=== PATIENT | male | born 1945 | race Caucasian/White ===

== ENCOUNTER 2024-03-12 17:39 | Inpatient (IN) | payer MEDICARE, OTHER ==
[~2024-03-12] VITALS: Ht 175.3 cm; Wt 81.0 kg
[2024-03-12 18:17] LABS: BASOPHILS # (AUTO) 0.1 X10'3 (0-0.2); BASOPHILS % (AUTO) 0.6 % (0-1); EOSINOPHILS # (AUTO) 0.3 X10'3 (0-0.9); EOSINOPHILS % (AUTO) 2.7 % (0-6); HEMATOCRIT 46.3 % (42.0-52.0); HEMOGLOBIN 15.9 g/dl (14.0-17.9); LYMPHOCYTES # (AUTO) 1.5 X10'3 (1.1-4.8); LYMPHOCYTES % (AUTO) 12.8 % (21-51); MEAN CORPUSCULAR HEMOGLOBIN 32.4 PG (27.0-31.0); MEAN CORPUSCULAR HGB CONC 34.2 g/dL (33.0-36.5); MEAN CORPUSCULAR VOLUME 94.6 FL (78-98); MEAN PLATELET VOLUME 7.5 FL (7.4-10.4); MONOCYTES # (AUTO) 0.8 X10'3 (0-0.9); NEUTROPHILS # (AUTO) 9.1 X10'3 (1.8-7.7); NEUTROPHILS % (AUTO) 76.9 % (42-75); PLATELET COUNT 173 X10'3 (140-440); RED CELL DISTRIBUTION WIDTH 12.6 % (11.5-14.5); WHITE BLOOD COUNT 11.8 X10'3 (4.5-11.0)
[2024-03-12 18:30] LABS: ALANINE AMINOTRANSFERASE 36 U/L (12-78); ALBUMIN 3.9 G/DL (3.4-5.0); ALBUMIN/GLOBULIN RATIO 1.2 (1.1-1.5); ALKALINE PHOSPHATASE 49 IU/L (46-116); AMYLASE 45 U/L (25-115); ANION GAP 7 (8-16); ASPARTATE AMINO TRANSFERASE 21 U/L (10-37); BILIRUBIN,TOTAL 1.4 MG/DL (0.1-1.0); BLOOD UREA NITROGEN 11 MG/DL (7-18); BUN/CREATININE RATIO 10.2 (10.0-20.0); CALCIUM 8.2 MG/DL (8.5-10.1); CHLORIDE 104 MMOL/L (99-107); CREATININE 1.08 MG/DL (0.60-1.10); GLUCOSE 145 MG/DL (70-104); LIPASE 36 U/L (16-77); SODIUM 138 MMOL/L (135-145); TOTAL CARBON DIOXIDE 26.7 MMOL/L (24-32); TOTAL PROTEIN 7.1 G/DL (6.4-8.2); eCRCL 55 ML/MIN; eGFR 66 ML/MIN
[2024-03-12 20:05] LABS: BILIRUBIN,URINE NEGATIVE (Neg); CLARITY,URINE CLEAR (Clear); COLOR,URINE YELLOW (Yellow); GLUCOSE, URINE NEGATIVE (Neg); KETONES,URINE NEGATIVE (Neg); LEUKOCYTE ESTERASE ,URINE NEGATIVE (Neg); NITRITES, URINE NEGATIVE (Neg); OCCULT BLOOD,URINE NEGATIVE (Neg); PH,URINE 6.5 (4.8-8.0); PROTEIN,URINE NEGATIVE (Neg); UROBILINOGEN,URINE 0.2 E.U/dL (0.2-1.0)
[2024-03-12 20:10] LABS: UA COLLECTION TYPE URINAL
[2024-03-12] MEDS: normal saline 1000ml 1,000 ML IV ONE (20:30)
[2024-03-12] MEDS ORDERED: pantoprazole 40mg IV 80 MG in normal saline 100ml IV soln 100 ML IV ONE (20:35)
[2024-03-12 20:51] LABS: APTT 26 SECONDS (22-32); INR 1.1 INR
[2024-03-12 20:52] LABS: MAGNESIUM 1.9 MG/DL (1.5-2.4); PRO BRAIN NATRIURETIC PEPTIDE 109 PG/ML (0-450)
[2024-03-12 20:52] LABS: ABSOLUTE RETICS # 68800 /CUMM (23000-93000); RETICULOCYTE % (AUTO) 1.4 % (0.5-1.5)
[2024-03-12 20:53] LABS: ETHANOL < 10 MG/DL (<10)
[2024-03-12] MEDS: pantoprazole 40 MG vial IV ONE (20:59)
[2024-03-12] MEDS: aspirin 81mg tab.chew PO ONE (21:50)
[2024-03-12] MEDS ORDERED: potassium Cl 20 mEq SR tablet PO PRN ×2 (22:55)
[2024-03-12] MEDS ORDERED: magnesium hydroxide 30ml (MOM) UD suspension PO PRN (22:55)
[2024-03-12] MEDS ORDERED: magnesium sulf-water 4G/100mL 100 ML IV PRN (22:55)
[2024-03-12] MEDS ORDERED: acetaminophen 325mg tablet PO PRN (22:55)
[2024-03-12] MEDS ORDERED: magnesium Cl slow-release 64mg tablet PO PRN (22:55)
[2024-03-12] MEDS ORDERED: ondansetron/PF 4mg/2ml inj IV PRN (22:55)
[2024-03-12] MEDS ORDERED: morphine 2 MG/ML inj. syringe IV PRN (22:55)
[2024-03-12] MEDS ORDERED: mag hydrox/Alum hydrox/simeth 30ml oral suspension PO PRN (22:55)
[2024-03-12] MEDS ORDERED: magnesium sulf-water 2g/50mL 50 ML IV PRN (22:55)
[2024-03-12] MEDS: HEPARIN DRIP-CARDIAC**PHARMACIST-TO-DOSE IV ONE (22:55)
[2024-03-12] MEDS ORDERED: potassium Cl 40MEQ/1/2NS 520ml 520 ML IV PRN (22:55)
[2024-03-12 23:45] LABS: D-DIMER 0.28 MG/L FEU (0-0.50)
[2024-03-12] MEDS: heparin 10,000 units/1 ML INJ IV ONE (23:47)
[2024-03-12] MEDS: heparin 25,000 UNIT/250ml bag 250 ML IV PRN (23:51)
[2024-03-12] MEDS: normal saline 1000ml 1,000 ML IV SCH (23:55)
[2024-03-12] MEDS: MESSAGE TO NURSING IV ONE (23:56)
[2024-03-13] VITALS (10 sets, daily range): BP systolic 104–136; BP diastolic 56–78; PULSE 57–68; RESP 14–18; TEMP 97.3–98.1; O2SAT 95–100
[2024-03-13] MEDS ORDERED: UBID100C16 PO (00:19)
[2024-03-13] MEDS ORDERED: BUDE10.2 INH (00:19)
[2024-03-13] MEDS ORDERED: BUDE0.5A11 IH (00:19)
[2024-03-13] MEDS ORDERED: ASPI-1265 PO (00:19)
[2024-03-13] MEDS ORDERED: LEVO112T52 PO (00:19)
[2024-03-13] MEDS ORDERED: ATOR20TA66 PO (00:19)
[2024-03-13] MEDS ORDERED: TRIA10.8 BOTHNARES (00:19)
[2024-03-13] MEDS ORDERED: CALC200T PO (00:19)
[2024-03-13] MEDS ORDERED: BISO5TAB PO (00:19)
[2024-03-13] MEDS ORDERED: PANT-47 PO (00:19)
[2024-03-13] MEDS ORDERED: ALEN70TA14 PO (00:19)
[2024-03-13] MEDS ORDERED: PERFLUTREN PROTEIN-A MICROSPHR (Optison) 0.22 MG/ML 3ML VIAL IV PRN (02:15)
[2024-03-13 03:06] LABS: OCCULT BLOOD STOOL NEGATIVE (Neg)
[2024-03-13] MEDS: pantoprazole 40 MG vial IV SCH (04:52)
[2024-03-13 06:41] LABS: BASOPHILS # (AUTO) 0.1 X10'3 (0-0.2); BASOPHILS % (AUTO) 0.8 % (0-1); EOSINOPHILS # (AUTO) 0.6 X10'3 (0-0.9); EOSINOPHILS % (AUTO) 7.1 % (0-6); HEMATOCRIT 42.5 % (42.0-52.0); HEMOGLOBIN 14.6 g/dl (14.0-17.9); LYMPHOCYTES # (AUTO) 2.3 X10'3 (1.1-4.8); LYMPHOCYTES % (AUTO) 29.5 % (21-51); MEAN CORPUSCULAR HEMOGLOBIN 32.2 PG (27.0-31.0); MEAN CORPUSCULAR HGB CONC 34.4 g/dL (33.0-36.5); MEAN CORPUSCULAR VOLUME 93.8 FL (78-98); MEAN PLATELET VOLUME 7.7 FL (7.4-10.4); MONOCYTES # (AUTO) 0.8 X10'3 (0-0.9); MONOCYTES % (AUTO) 9.7 % (2-12); NEUTROPHILS # (AUTO) 4.1 X10'3 (1.8-7.7); NEUTROPHILS % (AUTO) 52.9 % (42-75); PLATELET COUNT 163 X10'3 (140-440); RED BLOOD COUNT 4.53 X10'6 (4.70-6.10); RED CELL DISTRIBUTION WIDTH 12.7 % (11.5-14.5); WHITE BLOOD COUNT 7.8 X10'3 (4.5-11.0)
[2024-03-13 07:11] LABS: ALANINE AMINOTRANSFERASE 30 U/L (12-78); ALBUMIN/GLOBULIN RATIO 1.1 (1.1-1.5); ALKALINE PHOSPHATASE 44 IU/L (46-116); ANION GAP 7 (8-16); ASPARTATE AMINO TRANSFERASE 25 U/L (10-37); BILIRUBIN,TOTAL 1.4 MG/DL (0.1-1.0); BLOOD UREA NITROGEN 9 MG/DL (7-18); BUN/CREATININE RATIO 10.1 (10.0-20.0); CALCIUM 8.1 MG/DL (8.5-10.1); CHLORIDE 109 MMOL/L (99-107); CREATININE 0.89 MG/DL (0.60-1.10); GLUCOSE 116 MG/DL (70-104); MAGNESIUM 2.1 MG/DL (1.5-2.4); SODIUM 142 MMOL/L (135-145); TOTAL PROTEIN 5.8 G/DL (6.4-8.2); eCRCL 67 ML/MIN; eGFR 82 ML/MIN
[2024-03-13] MEDS: heparin 10,000 units/1 ML INJ IV PRN (07:42)
[2024-03-13] MEDS: K and/or MAG REPLACEMENT MC SCH (08:00)
[2024-03-13] MEDS: docusate sod 100mg capsule PO SCH (08:00)
[2024-03-13] MEDS: MESSAGE TO NURSING IV ONE ×2 (08:07→14:27)
[2024-03-13] MEDS: FLU VACC TS2024-25(6MOS UP)/PF 45 MCG/0.5 ML SYRINGE IMVAC ONE (08:08)
[2024-03-13] MEDS: metoprolol tartrate 12.5mg (1/2 tablet) PO SCH (11:05)
[2024-03-13] MEDS: atorvastatin 20mg tablet PO SCH (13:03)
[2024-03-13] MEDS: levoTHYROXINE 112mcg tablet PO SCH (13:04)
[2024-03-13 13:36] LABS: THYROID STIMULATING HORMONE 2.75 ulU/ml (0.34-4.50)
[2024-03-13] MEDS ORDERED: LIDOcaine 1% (10mg/ml) 2ml vial ONE (14:16)
[2024-03-13] MEDS ORDERED: heparin 1,000unit/ml 10ml vial 10 ML ONE (14:17)
[2024-03-13] MEDS ORDERED: iohexol 350MG/ML 100ml bottle IV ONE (14:17)
[2024-03-13] MEDS ORDERED: verapamil 2.5 mg/ml inj IV ONE (14:17)
[2024-03-13] MEDS ORDERED: fentaNYL/PF 50MCG/1 ML 2ML syringe ONE (14:17)
[2024-03-13] MEDS ORDERED: midazolam 1 mg/ML 2ml injection ONE (14:17)
[2024-03-13] MEDS ORDERED: nitroGLYCERIN 500mcg/5mL D5W 5 ML IV ONE (14:19)
[2024-03-13] MEDS: Budesonide/Formoterol Fumarate (Symbicort 160-4.5 Mcg Inhaler IH SCH (20:00)
[2024-03-14] VITALS (12 sets, daily range): BP systolic 116–140; BP diastolic 62–73; PULSE 60–91; RESP 15–26; TEMP 97.2–98.7; O2SAT 74–98
[2024-03-14 06:45] LABS: BASOPHILS # (AUTO) 0.1 X10'3 (0-0.2); BASOPHILS % (AUTO) 0.9 % (0-1); EOSINOPHILS # (AUTO) 0.6 X10'3 (0-0.9); EOSINOPHILS % (AUTO) 9.2 % (0-6); HEMATOCRIT 46.5 % (42.0-52.0); HEMOGLOBIN 15.9 g/dl (14.0-17.9); LYMPHOCYTES # (AUTO) 1.8 X10'3 (1.1-4.8); LYMPHOCYTES % (AUTO) 29.6 % (21-51); MEAN CORPUSCULAR HEMOGLOBIN 32.5 PG (27.0-31.0); MEAN CORPUSCULAR HGB CONC 34.2 g/dL (33.0-36.5); MEAN PLATELET VOLUME 8.7 FL (7.4-10.4); MONOCYTES # (AUTO) 0.6 X10'3 (0-0.9); MONOCYTES % (AUTO) 9.7 % (2-12); NEUTROPHILS # (AUTO) 3.1 X10'3 (1.8-7.7); NEUTROPHILS % (AUTO) 50.6 % (42-75); PLATELET COUNT 127 X10'3 (140-440); RED BLOOD COUNT 4.89 X10'6 (4.70-6.10); RED CELL DISTRIBUTION WIDTH 12.9 % (11.5-14.5); WHITE BLOOD COUNT 6.2 X10'3 (4.5-11.0)
[2024-03-14 06:54] LABS: ALANINE AMINOTRANSFERASE 32 U/L (12-78); ALBUMIN 3.2 G/DL (3.4-5.0); ALKALINE PHOSPHATASE 50 IU/L (46-116); ANION GAP 7 (8-16); ASPARTATE AMINO TRANSFERASE 30 U/L (10-37); BILIRUBIN,TOTAL 1.1 MG/DL (0.1-1.0); BLOOD UREA NITROGEN 8 MG/DL (7-18); BUN/CREATININE RATIO 9.6 (10.0-20.0); CALCIUM 8.4 MG/DL (8.5-10.1); CHLORIDE 110 MMOL/L (99-107); CREATININE 0.83 MG/DL (0.60-1.10); GLUCOSE 119 MG/DL (70-104); MAGNESIUM 2.2 MG/DL (1.5-2.4); SODIUM 142 MMOL/L (135-145); TOTAL CARBON DIOXIDE 24.9 MMOL/L (24-32); TOTAL PROTEIN 6.3 G/DL (6.4-8.2); eCRCL 72 ML/MIN; eGFR 89 ML/MIN
[2024-03-14] MEDS: aspirin 81mg tab.chew PO SCH (07:56)
[2024-03-14] MEDS: MESSAGE TO NURSING IV ONE ×3 (07:57→19:54)
[2024-03-14] MEDS ORDERED: CALCIUM CITRATE PO SCH (08:00)
[2024-03-14] MEDS ORDERED: non-formulary drug (Ubidecarenone (Coq-10) 200 MG) PO SCH (08:00)
[2024-03-14] MEDS: metoprolol succinate 25mg (24-HOUR) SR. Tablet PO SCH (08:00)
[2024-03-14] MEDS: ipratropium/albuterol 3ml nebule NEB PRN (08:42)
[2024-03-14] MEDS: budesonide 0.5mg/2ml UD nebule IH SCH (08:42)
[2024-03-14] MEDS ORDERED: cefazolin 2gm/D5W 100mL 50 ML IV ONE (12:10)
[2024-03-14] MEDS ORDERED: VANCOMYCIN 1GM 200ML H20 (PEG) 200 ML IV ONE (12:10)
[2024-03-14] MEDS ORDERED: dextrose 50%-water 50ml dispensing syringe IV PRN (12:10)
[2024-03-14] MEDS ORDERED: insulin glargine (Lantus) pen - multi-dose SQ PRN (12:10)
[2024-03-14] MEDS: MESSAGE TO NURSING PO ONE ×4 (12:10)
[2024-03-14] MEDS: MESSAGE TO PHARMACY IJ ONE (12:15)
[2024-03-14 13:16] LABS: APTT 59 SECONDS (22-32); PROTHROMBIN TIME 10.9 SECONDS (9.0-12.0)
[2024-03-14 13:35] LABS: ABG BASE EXCESS -1.1 mmol/L (-2.0-3.0); ABG HCO3 21.2 mmol/L (21.0-28.0); ABG OXYGEN SATURATION 94.7 % (94.0-98.0); ABG PCO2 (T) 28.8 mmHg (35.0-48.0); ABG PH (T) 7.481 (7.350-7.450); ABG PO2 (T) 61.2 mmHg (83.0-108.0); ALLEN'S TEST POSITIVE; FCOHb 0.9 % (0.5-1.5); FHHb 5.2 % (0.0-5.0); FLOW 0 L/min; FMetHb 0.3 % (0.0-1.5); FO2Hb 93.6 % (94.0-98.0); MODE RA; PATIENT TEMPERATURE 36.2; TOTAL HEMOGLOBIN 16.5 G/dl (13.5-17.5)
[2024-03-15] VITALS (10 sets, daily range): BP systolic 116–146; BP diastolic 63–81; PULSE 66–91; RESP 14–20; TEMP 97–98.6; O2SAT 94–98
[2024-03-15] MEDS: MESSAGE TO NURSING IV ONE ×4 (02:27→23:20)
[2024-03-15] MEDS: morphine 2 MG/ML inj. syringe IV PRN (04:14)
[2024-03-15] MEDS ORDERED: nitroGLYCERIN 0.4mg SUBLingual tab SL PRN (04:35)
[2024-03-15 08:32] LABS: BASOPHILS % (AUTO) 0.5 % (0-1); EOSINOPHILS # (AUTO) 0.3 X10'3 (0-0.9); EOSINOPHILS % (AUTO) 3.3 % (0-6); HEMATOCRIT 46.1 % (42.0-52.0); HEMOGLOBIN 16.1 g/dl (14.0-17.9); LYMPHOCYTES # (AUTO) 1.1 X10'3 (1.1-4.8); LYMPHOCYTES % (AUTO) 13.8 % (21-51); MEAN CORPUSCULAR HEMOGLOBIN 32.9 PG (27.0-31.0); MEAN CORPUSCULAR HGB CONC 34.9 g/dL (33.0-36.5); MEAN CORPUSCULAR VOLUME 94.3 FL (78-98); MEAN PLATELET VOLUME 8.3 FL (7.4-10.4); MONOCYTES # (AUTO) 0.7 X10'3 (0-0.9); NEUTROPHILS # (AUTO) 5.9 X10'3 (1.8-7.7); NEUTROPHILS % (AUTO) 73.4 % (42-75); PLATELET COUNT 160 X10'3 (140-440); RED BLOOD COUNT 4.89 X10'6 (4.70-6.10); RED CELL DISTRIBUTION WIDTH 12.7 % (11.5-14.5); WHITE BLOOD COUNT 8.1 X10'3 (4.5-11.0)
[2024-03-15] MEDS: nitroGLYCERIN 0.2mg/hour patch TD SCH (08:46)
[2024-03-15 08:48] LABS: ALANINE AMINOTRANSFERASE 30 U/L (12-78); ALBUMIN 3.4 G/DL (3.4-5.0); ALKALINE PHOSPHATASE 53 IU/L (46-116); ANION GAP 6 (8-16); ASPARTATE AMINO TRANSFERASE 22 U/L (10-37); BILIRUBIN,TOTAL 1.4 MG/DL (0.1-1.0); BLOOD UREA NITROGEN 9 MG/DL (7-18); BUN/CREATININE RATIO 9.1 (10.0-20.0); CALCIUM 8.5 MG/DL (8.5-10.1); CHLORIDE 107 MMOL/L (99-107); CREATININE 0.99 MG/DL (0.60-1.10); GLUCOSE 126 MG/DL (70-104); POTASSIUM 3.7 MMOL/L (3.5-5.1); SODIUM 140 MMOL/L (135-145); TOTAL CARBON DIOXIDE 27.2 MMOL/L (24-32); TOTAL PROTEIN 6.7 G/DL (6.4-8.2); eCRCL 61 ML/MIN; eGFR 73 ML/MIN
[2024-03-15] MEDS: MESSAGE TO NURSING PO ONE (10:00)
[2024-03-15] MEDS ORDERED: TIOT4MIS2 PO (10:20)
[2024-03-15] MEDS: ringers solution, lacted 1,000 ML IV ONE (15:10)
[2024-03-15] MEDS: Insulin Reg/NS 100units/100mL 100 ML IV SCH (21:30)
[2024-03-16] VITALS (19 sets, daily range): BP systolic 94–142; BP diastolic 48–69; PULSE 68–93; RESP 12–20; TEMP 97.4; O2SAT 95–100
[2024-03-16 03:01] LABS: BASOPHILS % (AUTO) 0.6 % (0-1); EOSINOPHILS # (AUTO) 0.5 X10'3 (0-0.9); EOSINOPHILS % (AUTO) 5.7 % (0-6); HEMATOCRIT 45.5 % (42.0-52.0); LYMPHOCYTES # (AUTO) 1.7 X10'3 (1.1-4.8); LYMPHOCYTES % (AUTO) 20.6 % (21-51); MEAN CORPUSCULAR HEMOGLOBIN 32.7 PG (27.0-31.0); MEAN CORPUSCULAR HGB CONC 35.2 g/dL (33.0-36.5); MEAN CORPUSCULAR VOLUME 92.9 FL (78-98); MEAN PLATELET VOLUME 8.1 FL (7.4-10.4); MONOCYTES % (AUTO) 11.4 % (2-12); NEUTROPHILS # (AUTO) 5.2 X10'3 (1.8-7.7); NEUTROPHILS % (AUTO) 61.7 % (42-75); PLATELET COUNT 151 X10'3 (140-440); RED BLOOD COUNT 4.89 X10'6 (4.70-6.10); RED CELL DISTRIBUTION WIDTH 12.9 % (11.5-14.5); WHITE BLOOD COUNT 8.4 X10'3 (4.5-11.0)
[2024-03-16 03:07] LABS: ALANINE AMINOTRANSFERASE 34 U/L (12-78); ALBUMIN 3.4 G/DL (3.4-5.0); ALKALINE PHOSPHATASE 52 IU/L (46-116); ANION GAP 9 (8-16); ASPARTATE AMINO TRANSFERASE 37 U/L (10-37); BILIRUBIN,TOTAL 1.7 MG/DL (0.1-1.0); BLOOD UREA NITROGEN 9 MG/DL (7-18); BUN/CREATININE RATIO 7.8 (10.0-20.0); CALCIUM 8.5 MG/DL (8.5-10.1); CHLORIDE 107 MMOL/L (99-107); CREATININE 1.15 MG/DL (0.60-1.10); GLUCOSE 135 MG/DL (70-104); MAGNESIUM 1.8 MG/DL (1.5-2.4); POTASSIUM 3.8 MMOL/L (3.5-5.1); SODIUM 141 MMOL/L (135-145); TOTAL CARBON DIOXIDE 25.1 MMOL/L (24-32); TOTAL PROTEIN 6.7 G/DL (6.4-8.2); eCRCL 52 ML/MIN; eGFR 61 ML/MIN
[2024-03-16] MEDS: MESSAGE TO NURSING IV ONE (03:25)
[2024-03-16 04:53] LABS: INR 1.1 INR; PROTHROMBIN TIME 11.4 SECONDS (9.0-12.0)
[2024-03-16] MEDS: cefazolin 2gm/D5W 100mL 50 ML IV ONE (05:30)
[2024-03-16] MEDS: VANCOMYCIN 1GM 200ML H20 (PEG) 200 ML IV ONE (05:30)
[2024-03-16] MEDS: mupirocin 2% nasal ointment 1gm UD NS ONE (06:00)
[2024-03-16] MEDS ORDERED: BUPIVAcaine 0.5% inj/PF 30 ML ONE (06:35)
[2024-03-16] MEDS ORDERED: ceFAZolin 1000mg inj ONE ×2 (06:35→11:23)
[2024-03-16] MEDS ORDERED: gelatin sponge, absorbable (Gelfoam 100) sponge TP ONE (07:00)
[2024-03-16] MEDS: famotidine/PF 10 mg/ml inj IV ONE (07:12)
[2024-03-16] MEDS ORDERED: MIDAZolam 1mg/ml 10ml vial ONE (07:28)
[2024-03-16] MEDS ORDERED: SUfentanil 50mcg/ml 1ml amp IV ONE (07:29)
[2024-03-16] MEDS ORDERED: isoflurane 100ml inhalation liquid IH ONE (07:36)
[2024-03-16] MEDS: LORazepam 2 mg/ml vial IV ONE (07:36)
[2024-03-16] MEDS: midazolam 1 mg/ML 2ml injection IV ONE (07:45)
[2024-03-16] MEDS ORDERED: fentaNYL/PF 50MCG/1 ML 2ML syringe IV PRN (07:45)
[2024-03-16] MEDS ORDERED: midazolam 100mg in NS 100ml 100 ML IV SCH (07:45)
[2024-03-16] MEDS ORDERED: FENTANYL-0.9 % NACL/PF 100 ML IV SCH (07:45)
[2024-03-16 08:29] LABS: ABG BASE EXCESS -1.7 mmol/L (-2.0-3.0); ABG HCO3 20.5 mmol/L (21.0-28.0); ABG OXYGEN SATURATION 99.7 % (94.0-98.0); ABG PCO2 28.8 mmHg (35.0-48.0); CL (ABG) 105 mmol/L (98-107); FCOHb 0.4 % (0.5-1.5); FHHb 0.3 % (0.0-5.0); FMetHb 0.1 % (0.0-1.5); FO2Hb 99.2 % (94.0-98.0); GLUCOSE (ABG) 117 mg/dl (65-95); IONIZED CA (ABG) 1.09 mmol/L (1.15-1.33); K (ABG) 3.3 mmol/L (3.40-4.50); TOTAL HEMOGLOBIN 15.4 G/dl (13.5-17.5)
[2024-03-16] MEDS ORDERED: albumin (Human) 5% 250ml 250 ML IV ONE (08:45)
[2024-03-16] MEDS ORDERED: LIDOcaine 2% (20mg/ml) 5ml vial ONE (09:04)
[2024-03-16] MEDS ORDERED: propofol inj 20 ML IV ONE (09:04)
[2024-03-16] MEDS ORDERED: rocuronium 10mg/ml inj IV ONE ×4 (09:04→11:27)
[2024-03-16] MEDS ORDERED: phenylephrine 10mg/ml inj. ONE (09:04)
[2024-03-16] MEDS ORDERED: 0.9 % SODIUM CHLORIDE 10 ML VIAL ONE (09:04)
[2024-03-16 09:43] LABS: ABG BASE EXCESS -3.5 mmol/L (-2.0-3.0); ABG HCO3 19.9 mmol/L (21.0-28.0); ABG OXYGEN SATURATION 99.6 % (94.0-98.0); ABG PCO2 31.6 mmHg (35.0-48.0); ABG PH 7.416 (7.350-7.450); CL (ABG) 105 mmol/L (98-107); FCOHb 0.1 % (0.5-1.5); FHHb 0.4 % (0.0-5.0); FMetHb 0.3 % (0.0-1.5); FO2Hb 99.2 % (94.0-98.0); GLUCOSE (ABG) 149 mg/dl (65-95); IONIZED CA (ABG) 1.09 mmol/L (1.15-1.33); TOTAL HEMOGLOBIN 15.1 G/dl (13.5-17.5)
[2024-03-16] MEDS: MESSAGE TO PHARMACY IJ ONE (09:46)
[2024-03-16 11:21] LABS: ABG BASE EXCESS -4.4 mmol/L (-2.0-3.0); ABG HCO3 17.9 mmol/L (21.0-28.0); ABG OXYGEN SATURATION 99.8 % (94.0-98.0); ABG PCO2 26.2 mmHg (35.0-48.0); ABG PH 7.452 (7.350-7.450); CL (ABG) 107 mmol/L (98-107); FCOHb 0.5 % (0.5-1.5); FHHb 0.2 % (0.0-5.0); FMetHb 0.3 % (0.0-1.5); GLUCOSE (ABG) 183 mg/dl (65-95); IONIZED CA (ABG) 1.08 mmol/L (1.15-1.33); K (ABG) 4.1 mmol/L (3.40-4.50); TOTAL HEMOGLOBIN 14.1 G/dl (13.5-17.5)
[2024-03-16] MEDS ORDERED: heparin 1,000unit/ml 10ml vial 10 ML ONE (11:27)
[2024-03-16] MEDS: ceFAZolin 1000mg inj IR ONE (11:46)
[2024-03-16 12:05] LABS: ABG BASE EXCESS VENOUS -3.9 mmol/L (-2.0-3.0); ABG HCO3 VENOUS 20.3 mmol/L (22.0-29.0); ABG OXYGEN SATURATION VENOUS 88.1 % (60.0-85.0); ABG PCO2 VENOUS 33.4 mmHg (38.0-54.0); ABG PH (VENOUS) 7.402 (7.320-7.430); CL (ABG) 104 mmol/L (98-107); FCOHb VENOUS 0.3 % (0.5-1.5); FHHb VENOUS 11.8 %; FMetHb VENOUS 0.3 % (0.5-1.5); FO2Hb VENOUS 87.6 % (0-80.0); GLUCOSE (ABG) 161 mg/dl (65-95); IONIZED CA (ABG) 0.92 mmol/L (1.15-1.33); TOTAL HEMOGLOBIN 9.2 G/dl (13.5-17.5)
[2024-03-16 12:07] LABS: ABG BASE EXCESS -3.3 mmol/L (-2.0-3.0); ABG HCO3 20.5 mmol/L (21.0-28.0); ABG OXYGEN SATURATION 99.4 % (94.0-98.0); ABG PCO2 32.1 mmHg (35.0-48.0); ABG PH 7.423 (7.350-7.450); CL (ABG) 106 mmol/L (98-107); FCOHb 0.3 % (0.5-1.5); FHHb 0.6 % (0.0-5.0); FMetHb 0.1 % (0.0-1.5); GLUCOSE (ABG) 162 mg/dl (65-95); IONIZED CA (ABG) 0.95 mmol/L (1.15-1.33); K (ABG) 4.7 mmol/L (3.40-4.50); TOTAL HEMOGLOBIN 9.2 G/dl (13.5-17.5)
[2024-03-16 12:38] LABS: ABG BASE EXCESS -4.4 mmol/L (-2.0-3.0); ABG HCO3 20.6 mmol/L (21.0-28.0); ABG OXYGEN SATURATION 99.2 % (94.0-98.0); ABG PCO2 37.5 mmHg (35.0-48.0); ABG PH 7.358 (7.350-7.450); CL (ABG) 106 mmol/L (98-107); FCOHb 0.3 % (0.5-1.5); FHHb 0.8 % (0.0-5.0); FMetHb 0.1 % (0.0-1.5); FO2Hb 98.8 % (94.0-98.0); GLUCOSE (ABG) 155 mg/dl (65-95); IONIZED CA (ABG) 0.94 mmol/L (1.15-1.33); K (ABG) 4.8 mmol/L (3.40-4.50); TOTAL HEMOGLOBIN 10.6 G/dl (13.5-17.5)
[2024-03-16 13:10] LABS: ABG BASE EXCESS -4.4 mmol/L (-2.0-3.0); ABG HCO3 20.9 mmol/L (21.0-28.0); ABG OXYGEN SATURATION 99.2 % (94.0-98.0); ABG PH 7.346 (7.350-7.450); CL (ABG) 107 mmol/L (98-107); FCOHb 0.3 % (0.5-1.5); FHHb 0.8 % (0.0-5.0); FMetHb 0.1 % (0.0-1.5); FO2Hb 98.8 % (94.0-98.0); GLUCOSE (ABG) 159 mg/dl (65-95); IONIZED CA (ABG) 0.97 mmol/L (1.15-1.33); K (ABG) 4.7 mmol/L (3.40-4.50); TOTAL HEMOGLOBIN 10.6 G/dl (13.5-17.5)
[2024-03-16 13:35] LABS: ABG BASE EXCESS -2.3 mmol/L (-2.0-3.0); ABG HCO3 22.4 mmol/L (21.0-28.0); ABG PCO2 38.3 mmHg (35.0-48.0); ABG PH 7.385 (7.350-7.450); CL (ABG) 105 mmol/L (98-107); FCOHb 0.3 % (0.5-1.5); FMetHb 0.2 % (0.0-1.5); FO2Hb 98.5 % (94.0-98.0); GLUCOSE (ABG) 154 mg/dl (65-95); IONIZED CA (ABG) 0.93 mmol/L (1.15-1.33); K (ABG) 4.8 mmol/L (3.40-4.50); TOTAL HEMOGLOBIN 9.9 G/dl (13.5-17.5)
[2024-03-16 14:01] LABS: ABG BASE EXCESS -1.4 mmol/L (-2.0-3.0); ABG HCO3 22.6 mmol/L (21.0-28.0); ABG OXYGEN SATURATION 98.5 % (94.0-98.0); ABG PCO2 34.9 mmHg (35.0-48.0); ABG PH 7.429 (7.350-7.450); ABG PO2 151.4 mmHg (83.0-108.0); CL (ABG) 108 mmol/L (98-107); FCOHb 0.3 % (0.5-1.5); FHHb 1.5 % (0.0-5.0); FMetHb 0.2 % (0.0-1.5); GLUCOSE (ABG) 147 mg/dl (65-95); IONIZED CA (ABG) 1.13 mmol/L (1.15-1.33); K (ABG) 4.1 mmol/L (3.40-4.50); TOTAL HEMOGLOBIN 9.9 G/dl (13.5-17.5)
[2024-03-16 14:05] LABS: ACTIVATED CLOTTING TIME 136 SEC (101-148)
[2024-03-16] MEDS ORDERED: ondansetron/PF 4mg/2ml inj ONE (14:18)
[2024-03-16] MEDS ORDERED: dexamethasone sod phosphate 4mg/ml inj. ONE (14:18)
[2024-03-16] MEDS ORDERED: mineral oil 133ml enema RC PRN (15:15)
[2024-03-16] MEDS ORDERED: dextrose 50%-water 50ml dispensing syringe IV PRN (15:15)
[2024-03-16] MEDS ORDERED: magnesium sulf-water 2g/50mL 50 ML IV PRN (15:15)
[2024-03-16] MEDS ORDERED: niCARDipine-NS 40mg/200ml IVPB 200 ML IV PRN (15:15)
[2024-03-16] MEDS ORDERED: Insulin Reg/NS 100units/100mL 100 ML IV SCH (15:15)
[2024-03-16] MEDS ORDERED: sodium phosphate inj. 30 MMOL in dextrose 5%-water 250 ML IV PRN (15:15)
[2024-03-16] MEDS ORDERED: metoclopramide 5 mg/ml inj IV PRN (15:15)
[2024-03-16] MEDS ORDERED: morphine 4 MG/ML inj SYRINge IV PRN (15:15)
[2024-03-16] MEDS ORDERED: Neutra Phos packet PO PRN (15:15)
[2024-03-16] MEDS ORDERED: bisacodyl 10mg suppository rectal RC PRN (15:15)
[2024-03-16] MEDS ORDERED: morphine 2 MG/ML inj. syringe IV PRN (15:15)
[2024-03-16] MEDS ORDERED: potassium Cl 20 mEq SR tablet PO PRN (15:15)
[2024-03-16] MEDS ORDERED: nitroGLYCERIN-Tridil 50MG/D5W 250 ML IV PRN (15:15)
[2024-03-16] MEDS ORDERED: potassium Cl 40MEQ/1/2NS 520ml 520 ML IV PRN (15:15)
[2024-03-16] MEDS ORDERED: potassium Cl 40MEQ/270ML bag 250 ML IV PRN (15:15)
[2024-03-16] MEDS ORDERED: insulin glargine (Lantus) pen - multi-dose SQ PRN (15:15)
[2024-03-16] MEDS ORDERED: potassium CL 10mEq/100ml bag 100 ML IV PRN (15:15)
[2024-03-16] MEDS ORDERED: normal saline 250ml IV soln 250 ML IV PRN (15:15)
[2024-03-16 15:19] LABS: APTT 32 SECONDS (22-32); FIBRINOGEN 158 MG/DL (177-424); INR 1.4 INR; PROTHROMBIN TIME 14.4 SECONDS (9.0-12.0)
[2024-03-16 15:29] LABS: ABG BASE EXCESS -3.3 mmol/L (-2.0-3.0); ABG HCO3 20.7 mmol/L (21.0-28.0); ABG OXYGEN SATURATION 99.4 % (94.0-98.0); ABG PCO2 (T) 32.1 mmHg (35.0-48.0); ABG PH (T) 7.423 (7.350-7.450); ABG PO2 (T) 255.1 mmHg (83.0-108.0); FCOHb 0.4 % (0.5-1.5); FHHb 0.6 % (0.0-5.0); MODE VENT - SIMV; PATIENT TEMPERATURE 35.6; PEEP 5 cm H2O; RESPIRATORY RATE 12 b/min; TIDAL VOLUME 600 mL; TOTAL HEMOGLOBIN 12.1 G/dl (13.5-17.5)
[2024-03-16 15:56] LABS: EOSINOPHILS # (AUTO) 0.1 X10'3 (0-0.9); HEMATOCRIT 33.2 % (42.0-52.0); LYMPHOCYTES # (AUTO) 1.2 X10'3 (1.1-4.8); LYMPHOCYTES % (AUTO) 12.4 % (21-51); PLATELET COUNT 67 X10'3 (140-440)
[2024-03-16 15:58] LABS: BASOPHILS % (AUTO) 0.2 % (0-1); EOSINOPHILS % (AUTO) 0.6 % (0-6); HEMOGLOBIN 11.5 g/dl (14.0-17.9); MEAN CORPUSCULAR HEMOGLOBIN 32.3 PG (27.0-31.0); MEAN CORPUSCULAR HGB CONC 34.6 g/dL (33.0-36.5); MEAN CORPUSCULAR VOLUME 93.2 FL (78-98); MEAN PLATELET VOLUME 7.5 FL (7.4-10.4); MONOCYTES # (AUTO) 1.1 X10'3 (0-0.9); MONOCYTES % (AUTO) 11.4 % (2-12); NEUTROPHILS % (AUTO) 75.4 % (42-75); RED BLOOD COUNT 3.57 X10'6 (4.70-6.10); RED CELL DISTRIBUTION WIDTH 12.8 % (11.5-14.5); WHITE BLOOD COUNT 9.3 X10'3 (4.5-11.0)
[2024-03-16 16:02] LABS: ALANINE AMINOTRANSFERASE 26 U/L (12-78); ALBUMIN 2.3 G/DL (3.4-5.0); ALBUMIN/GLOBULIN RATIO 1.2 (1.1-1.5); ALKALINE PHOSPHATASE 27 IU/L (46-116); ANION GAP 9 (8-16); APTT 33 SECONDS (22-32); BILIRUBIN,TOTAL 1.9 MG/DL (0.1-1.0); BLOOD UREA NITROGEN 12 MG/DL (7-18); BUN/CREATININE RATIO 13.5 (10.0-20.0); CALCIUM 7.3 MG/DL (8.5-10.1); CHLORIDE 113 MMOL/L (99-107); CREATININE 0.89 MG/DL (0.60-1.10); FIBRINOGEN 169 MG/DL (177-424); GLUCOSE 132 MG/DL (70-104); INR 1.3 INR; MAGNESIUM 2.3 MG/DL (1.5-2.4); PROTHROMBIN TIME 13.8 SECONDS (9.0-12.0); SODIUM 145 MMOL/L (135-145); TOTAL CARBON DIOXIDE 23.2 MMOL/L (24-32); TOTAL PROTEIN 4.2 G/DL (6.4-8.2); eCRCL 67 ML/MIN; eGFR 82 ML/MIN
[2024-03-16 16:03] LABS: ASPARTATE AMINO TRANSFERASE 54 U/L (10-37); PHOSPHORUS 2.2 MG/DL (2.3-4.5); POTASSIUM 3.8 MMOL/L (3.5-5.1)
[2024-03-16] MEDS: potassium Cl 20mEq/100mL bag 100 ML IV PRN (17:58)
[2024-03-16] MEDS: sodium chloride 0.45% 1,000 ML IV SCH (18:00)
[2024-03-16] MEDS: ceFAZolin/D5W- 1GM premix 50 ML IV SCH (18:01)
[2024-03-16] MEDS ORDERED: NORepinephrine 8mg/ 250ml NS 250 ML IV PRN (18:05)
[2024-03-16] MEDS ORDERED: DOBUTamine-DoBUTrex 500mg/D5W 250 ML IV PRN (18:05)
[2024-03-16] MEDS: sennosides/docusate sodium tablet PO SCH (20:00)
[2024-03-16] MEDS: mupirocin 2% nasal ointment 1gm UD NS SCH (20:16)
[2024-03-16] MEDS: aspirin 81mg tab.chew PO ONE (20:16)
[2024-03-16] MEDS: VANCOMYCIN 1GM 200ML H20 (PEG) 200 ML IV SCH (20:16)
[2024-03-16] MEDS: atorvastatin 10mg tablet PO SCH (20:17)
[2024-03-16] MEDS: albumin (Human) 5% 250ml 250 ML IV PRN (20:17)
[2024-03-16 20:41] LABS: EOSINOPHILS % (AUTO) 0.1 % (0-6); HEMOGLOBIN 11.5 g/dl (14.0-17.9); LYMPHOCYTES # (AUTO) 0.6 X10'3 (1.1-4.8); WHITE BLOOD COUNT 11.8 X10'3 (4.5-11.0)
[2024-03-16 20:43] LABS: BASOPHILS % (AUTO) 0.2 % (0-1); HEMATOCRIT 33.6 % (42.0-52.0); LYMPHOCYTES % (AUTO) 5.1 % (21-51); MEAN CORPUSCULAR HGB CONC 34.3 g/dL (33.0-36.5); MEAN CORPUSCULAR VOLUME 93.4 FL (78-98); MEAN PLATELET VOLUME 7.6 FL (7.4-10.4); MONOCYTES % (AUTO) 8.6 % (2-12); NEUTROPHILS # (AUTO) 10.1 X10'3 (1.8-7.7); PLATELET COUNT 77 X10'3 (140-440); RED CELL DISTRIBUTION WIDTH 12.8 % (11.5-14.5)
[2024-03-16 20:53] LABS: ALBUMIN 2.9 G/DL (3.4-5.0); ANION GAP 9 (8-16); BLOOD UREA NITROGEN 12 MG/DL (7-18); BUN/CREATININE RATIO 11.5 (10.0-20.0); CHLORIDE 115 MMOL/L (99-107); CREATININE 1.04 MG/DL (0.60-1.10); GLUCOSE 151 MG/DL (70-104); PHOSPHORUS 2.3 MG/DL (2.3-4.5); POTASSIUM 4.2 MMOL/L (3.5-5.1); SODIUM 145 MMOL/L (135-145); TOTAL CARBON DIOXIDE 21.4 MMOL/L (24-32); eCRCL 58 ML/MIN; eGFR 69 ML/MIN
[2024-03-17] VITALS (32 sets, daily range): BP systolic 89–155; BP diastolic 43–63; PULSE 79–140; RESP 10–30; O2SAT 92–99
[2024-03-17 02:40] LABS: ABG HCO3 12.2 mmol/L (21.0-28.0); ABG OXYGEN SATURATION 96.4 % (94.0-98.0); ABG PCO2 (T) 15.1 mmHg (35.0-48.0); ABG PH (T) 7.526 (7.350-7.450); FCOHb 0.3 % (0.5-1.5); FHHb 3.6 % (0.0-5.0); FMetHb 0.3 % (0.0-1.5); FO2Hb 95.8 % (94.0-98.0); MODE VENT - CPAP; PATIENT TEMPERATURE 37.3; PEEP 5 cm H2O; TOTAL HEMOGLOBIN 11.1 G/dl (13.5-17.5)
[2024-03-17 02:50] LABS: EOSINOPHILS % (AUTO) 0 % (0-6); LYMPHOCYTES # (AUTO) 0.6 X10'3 (1.1-4.8); MONOCYTES % (AUTO) 6.2 % (2-12)
[2024-03-17 02:53] LABS: BASOPHILS % (AUTO) 0.2 % (0-1); HEMATOCRIT 30.5 % (42.0-52.0); HEMOGLOBIN 10.6 g/dl (14.0-17.9); LYMPHOCYTES % (AUTO) 6.1 % (21-51); MEAN CORPUSCULAR HEMOGLOBIN 32.1 PG (27.0-31.0); MEAN CORPUSCULAR HGB CONC 34.6 g/dL (33.0-36.5); MEAN CORPUSCULAR VOLUME 92.9 FL (78-98); MEAN PLATELET VOLUME 8.1 FL (7.4-10.4); MONOCYTES # (AUTO) 0.6 X10'3 (0-0.9); NEUTROPHILS # (AUTO) 9.2 X10'3 (1.8-7.7); NEUTROPHILS % (AUTO) 87.5 % (42-75); PLATELET COUNT 66 X10'3 (140-440); RED BLOOD COUNT 3.29 X10'6 (4.70-6.10); WHITE BLOOD COUNT 10.5 X10'3 (4.5-11.0)
[2024-03-17 03:03] LABS: APTT 28 SECONDS (22-32); INR 1.1 INR; PROTHROMBIN TIME 11.8 SECONDS (9.0-12.0)
[2024-03-17 03:15] LABS: ALANINE AMINOTRANSFERASE 34 U/L (12-78); ALBUMIN 3.1 G/DL (3.4-5.0); ALBUMIN/GLOBULIN RATIO 1.7 (1.1-1.5); ALKALINE PHOSPHATASE 25 IU/L (46-116); ANION GAP 13 (8-16); ASPARTATE AMINO TRANSFERASE 61 U/L (10-37); BILIRUBIN,TOTAL 1.6 MG/DL (0.1-1.0); BLOOD UREA NITROGEN 12 MG/DL (7-18); BUN/CREATININE RATIO 11.3 (10.0-20.0); CALCIUM 7.4 MG/DL (8.5-10.1); CHLORIDE 112 MMOL/L (99-107); CREATININE 1.06 MG/DL (0.60-1.10); GLUCOSE 160 MG/DL (70-104); POTASSIUM 3.8 MMOL/L (3.5-5.1); SODIUM 144 MMOL/L (135-145); TOTAL CARBON DIOXIDE 18.8 MMOL/L (24-32); TOTAL PROTEIN 4.9 G/DL (6.4-8.2); eCRCL 57 ML/MIN; eGFR 67 ML/MIN
[2024-03-17] MEDS: sodium phosphate inj. 15 MMOL in dextrose 5%-water 250 ML IV PRN (04:46)
[2024-03-17] MEDS: morphine 2 MG/ML inj. syringe IV PRN (06:03)
[2024-03-17] MEDS: mineral oil/petrolatum ophthal oint EACHEYE SCH (07:54)
[2024-03-17] MEDS: metoprolol tartrate 12.5mg (1/2 tablet) PO SCH (08:00)
[2024-03-17] MEDS: aspirin 81mg tab.chew PO SCH (08:30)
[2024-03-17] MEDS: dextrose 5%-normal saline 1,000 ML IV SCH (11:38)
[2024-03-17] MEDS: clopidogrel 75mg tablet PO ONE (14:30)
[2024-03-17] MEDS: acetaminophen 325mg tablet PO PRN (16:23)
[2024-03-17] MEDS: INSULIN LISPRO 100 UNIT/ML INSULN.PEN MULTI-DOSE SQ SCH (17:00)
[2024-03-17] MEDS: amiodarone 150mg/dext, iso-os 100 ML IV ONE (17:23)
[2024-03-17] MEDS: amiodarone/D5 360MG/200ML BAG 200 ML IV SCH (17:37)
[2024-03-17 17:46] LABS: ALANINE AMINOTRANSFERASE 33 U/L (12-78); ALBUMIN 3.2 G/DL (3.4-5.0); ALBUMIN/GLOBULIN RATIO 1.5 (1.1-1.5); ALKALINE PHOSPHATASE 28 IU/L (46-116); ANION GAP 9 (8-16); ASPARTATE AMINO TRANSFERASE 39 U/L (10-37); BILIRUBIN,TOTAL 1.3 MG/DL (0.1-1.0); BLOOD UREA NITROGEN 12 MG/DL (7-18); BUN/CREATININE RATIO 12.6 (10.0-20.0); CALCIUM 7.3 MG/DL (8.5-10.1); CHLORIDE 108 MMOL/L (99-107); CREATININE 0.95 MG/DL (0.60-1.10); GLUCOSE 203 MG/DL (70-104); POTASSIUM 4.2 MMOL/L (3.5-5.1); SODIUM 139 MMOL/L (135-145); TOTAL CARBON DIOXIDE 21.8 MMOL/L (24-32); TOTAL PROTEIN 5.3 G/DL (6.4-8.2); eCRCL 63 ML/MIN; eGFR 76 ML/MIN
[2024-03-17] MEDS: magnesium sulf-water 4G/100mL 100 ML IV PRN (19:22)
[2024-03-17] MEDS: HYDROcodone/acetaminophen 10/325mg tab PO PRN ×2 (20:42→22:34)
[2024-03-18] VITALS (29 sets, daily range): BP systolic 72–127; BP diastolic 34–66; PULSE 68–116; RESP 11–28; TEMP 97.8–98.6; O2SAT 91–100
[2024-03-18 01:48] LABS: BASOPHILS % (AUTO) 0.1 % (0-1); EOSINOPHILS % (AUTO) 0 % (0-6); HEMATOCRIT 27.9 % (42.0-52.0); HEMOGLOBIN 9.4 g/dl (14.0-17.9); LYMPHOCYTES # (AUTO) 1.3 X10'3 (1.1-4.8); LYMPHOCYTES % (AUTO) 7.2 % (21-51); MEAN CORPUSCULAR HEMOGLOBIN 31.9 PG (27.0-31.0); MEAN CORPUSCULAR HGB CONC 33.8 g/dL (33.0-36.5); MEAN CORPUSCULAR VOLUME 94.4 FL (78-98); MEAN PLATELET VOLUME 8.8 FL (7.4-10.4); MONOCYTES # (AUTO) 1.9 X10'3 (0-0.9); MONOCYTES % (AUTO) 10.2 % (2-12); NEUTROPHILS # (AUTO) 15.1 X10'3 (1.8-7.7); NEUTROPHILS % (AUTO) 82.5 % (42-75); PLATELET COUNT 95 X10'3 (140-440); RED BLOOD COUNT 2.96 X10'6 (4.70-6.10); RED CELL DISTRIBUTION WIDTH 13.3 % (11.5-14.5); WHITE BLOOD COUNT 18.3 X10'3 (4.5-11.0)
[2024-03-18 02:05] LABS: ALBUMIN 2.9 G/DL (3.4-5.0); ANION GAP 9 (8-16); BLOOD UREA NITROGEN 12 MG/DL (7-18); CALCIUM 7.2 MG/DL (8.5-10.1); CHLORIDE 106 MMOL/L (99-107); GLUCOSE 179 MG/DL (70-104); MAGNESIUM 2.9 MG/DL (1.5-2.4); PHOSPHORUS 2.5 MG/DL (2.3-4.5); SODIUM 135 MMOL/L (135-145); TOTAL CARBON DIOXIDE 19.9 MMOL/L (24-32); eCRCL 75 ML/MIN; eGFR > 90 ML/MIN
[2024-03-18] MEDS: clopidogrel 75mg tablet PO SCH (07:21)
[2024-03-18] MEDS: pantoprazole 40mg Tablet.DR PO SCH (07:21)
[2024-03-18] MEDS: albumin (Human) 5% 250ml 250 ML IV ONE (09:35)
[2024-03-18] MEDS: amiodarone 200mg tablet PO SCH (09:36)
[2024-03-18] MEDS: NORepinephrine 8mg/ 250ml NS 250 ML IV SCH (11:34)
[2024-03-18] MEDS: amiodarone/D5 360MG/200ML BAG 200 ML IV SCH (12:02)
[2024-03-18] MEDS: amiodarone 150mg/dext, iso-os 100 ML IV ONE (12:11)
[2024-03-18] MEDS: apixaban 2.5mg tablet PO SCH (20:10)
[2024-03-19] VITALS (27 sets, daily range): BP systolic 97–144; BP diastolic 53–79; PULSE 62–85; RESP 12–27; O2SAT 93–99
[2024-03-19 02:47] LABS: BASOPHILS % (AUTO) 0.1 % (0-1); EOSINOPHILS % (AUTO) 0.2 % (0-6); HEMOGLOBIN 9.9 g/dl (14.0-17.9); LYMPHOCYTES # (AUTO) 1.8 X10'3 (1.1-4.8); LYMPHOCYTES % (AUTO) 13.9 % (21-51); MEAN CORPUSCULAR HEMOGLOBIN 32.5 PG (27.0-31.0); MEAN CORPUSCULAR HGB CONC 34.1 g/dL (33.0-36.5); MEAN CORPUSCULAR VOLUME 95.3 FL (78-98); MEAN PLATELET VOLUME 9.3 FL (7.4-10.4); MONOCYTES # (AUTO) 1.3 X10'3 (0-0.9); MONOCYTES % (AUTO) 10.2 % (2-12); NEUTROPHILS # (AUTO) 9.6 X10'3 (1.8-7.7); NEUTROPHILS % (AUTO) 75.6 % (42-75); PLATELET COUNT 94 X10'3 (140-440); RED BLOOD COUNT 3.05 X10'6 (4.70-6.10); RED CELL DISTRIBUTION WIDTH 13.4 % (11.5-14.5); WHITE BLOOD COUNT 12.7 X10'3 (4.5-11.0)
[2024-03-19 03:05] LABS: ALBUMIN 2.8 G/DL (3.4-5.0); ANION GAP 6 (8-16); BLOOD UREA NITROGEN 14 MG/DL (7-18); BUN/CREATININE RATIO 17.1 (10.0-20.0); CALCIUM 7.3 MG/DL (8.5-10.1); CHLORIDE 108 MMOL/L (99-107); CREATININE 0.82 MG/DL (0.60-1.10); GLUCOSE 144 MG/DL (70-104); MAGNESIUM 2.6 MG/DL (1.5-2.4); PHOSPHORUS 1.9 MG/DL (2.3-4.5); POTASSIUM 4.4 MMOL/L (3.5-5.1); SODIUM 137 MMOL/L (135-145); eCRCL 73 ML/MIN; eGFR > 90 ML/MIN
[2024-03-19 06:05] LABS: ACT @ 1.70 U 329 SEC (193-297); ACT @ 2.84 U 476 SEC (260-420); BASELINE ACT 158 SEC (101-148); PATIENT WEIGHT 82.0k KG
[2024-03-19 12:02] LABS: ABG PO2 342.5 mmHg (83.0-108.0)
[2024-03-19 12:02] LABS: ABG PO2 459.1 mmHg (83.0-108.0)
[2024-03-19 12:03] LABS: ABG PO2 480.5 mmHg (83.0-108.0)
[2024-03-19 12:03] LABS: ABG PO2 447.8 mmHg (83.0-108.0)
[2024-03-19 12:04] LABS: ABG PO2 399.4 mmHg (83.0-108.0)
[2024-03-19 12:05] LABS: ABG PO2 366.3 mmHg (83.0-108.0)
[2024-03-19 12:05] LABS: ABG PO2 372.5 mmHg (83.0-108.0)
[2024-03-19] MEDS: magnesium hydroxide 30ml (MOM) UD suspension PO PRN (16:52)
[2024-03-20] VITALS (27 sets, daily range): BP systolic 105–142; BP diastolic 57–75; PULSE 72–110; RESP 12–25; O2SAT 92–99
[2024-03-20 02:26] LABS: BASOPHILS % (AUTO) 0.1 % (0-1); EOSINOPHILS # (AUTO) 0.1 X10'3 (0-0.9); EOSINOPHILS % (AUTO) 1.2 % (0-6); HEMATOCRIT 29.4 % (42.0-52.0); HEMOGLOBIN 10.4 g/dl (14.0-17.9); LYMPHOCYTES # (AUTO) 1.8 X10'3 (1.1-4.8); LYMPHOCYTES % (AUTO) 17.9 % (21-51); MEAN CORPUSCULAR HEMOGLOBIN 33.1 PG (27.0-31.0); MEAN CORPUSCULAR HGB CONC 35.2 g/dL (33.0-36.5); MEAN PLATELET VOLUME 8.4 FL (7.4-10.4); MONOCYTES % (AUTO) 9.9 % (2-12); NEUTROPHILS # (AUTO) 7.2 X10'3 (1.8-7.7); NEUTROPHILS % (AUTO) 70.9 % (42-75); PLATELET COUNT 124 X10'3 (140-440); RED BLOOD COUNT 3.13 X10'6 (4.70-6.10); RED CELL DISTRIBUTION WIDTH 13.4 % (11.5-14.5); WHITE BLOOD COUNT 10.1 X10'3 (4.5-11.0)
[2024-03-20 02:53] LABS: ALBUMIN 2.8 G/DL (3.4-5.0); ANION GAP 9 (8-16); BLOOD UREA NITROGEN 11 MG/DL (7-18); BUN/CREATININE RATIO 14.3 (10.0-20.0); CALCIUM 7.7 MG/DL (8.5-10.1); CHLORIDE 107 MMOL/L (99-107); CREATININE 0.77 MG/DL (0.60-1.10); GLUCOSE 137 MG/DL (70-104); MAGNESIUM 2.2 MG/DL (1.5-2.4); PHOSPHORUS 3.2 MG/DL (2.3-4.5); POTASSIUM 3.8 MMOL/L (3.5-5.1); SODIUM 139 MMOL/L (135-145); TOTAL CARBON DIOXIDE 23.5 MMOL/L (24-32); eCRCL 78 ML/MIN; eGFR > 90 ML/MIN
[2024-03-20] MEDS: TIOTROPIUM BROMIDE PO SCH (07:50)
[2024-03-20] MEDS ORDERED: potassium Cl 40MEQ/1/2NS 520ml 520 ML IV PRN (08:30)
[2024-03-20] MEDS ORDERED: potassium Cl 20 mEq SR tablet PO PRN (08:30)
[2024-03-20] MEDS ORDERED: potassium Cl 20mEq/100mL bag 100 ML IV PRN (08:30)
[2024-03-20] MEDS ORDERED: magnesium sulf-water 4G/100mL 100 ML IV PRN (08:30)
[2024-03-20] MEDS ORDERED: potassium CL 10mEq/100ml bag 100 ML IV PRN (08:30)
[2024-03-20] MEDS ORDERED: potassium Cl 40MEQ/270ML bag 250 ML IV PRN (08:30)
[2024-03-20] MEDS: amiodarone 200mg tablet PO SCH (08:45)
[2024-03-20] MEDS: potassium Cl 20 mEq SR tablet PO PRN (08:45)
[2024-03-20] MEDS: magnesium sulf-water 2g/50mL 50 ML IV PRN (10:52)
[2024-03-20] MEDS: lactose-reduced food (Ensure Enlive) - 237ml bottle PO SCH (18:00)
[2024-03-20] MEDS: magnesium Cl slow-release 64mg tablet PO SCH (19:59)
[2024-03-21] VITALS (25 sets, daily range): BP systolic 83–130; BP diastolic 45–80; PULSE 80–138; RESP 11–28; TEMP 96.8–97.8; O2SAT 93–100
[2024-03-21 03:39] LABS: BASOPHILS % (AUTO) 0.3 % (0-1); EOSINOPHILS # (AUTO) 0.5 X10'3 (0-0.9); EOSINOPHILS % (AUTO) 4.7 % (0-6); HEMOGLOBIN 11.8 g/dl (14.0-17.9); LYMPHOCYTES # (AUTO) 1.8 X10'3 (1.1-4.8); LYMPHOCYTES % (AUTO) 18.5 % (21-51); MEAN CORPUSCULAR HEMOGLOBIN 33.2 PG (27.0-31.0); MEAN CORPUSCULAR HGB CONC 34.7 g/dL (33.0-36.5); MEAN CORPUSCULAR VOLUME 95.5 FL (78-98); MONOCYTES # (AUTO) 0.9 X10'3 (0-0.9); MONOCYTES % (AUTO) 9.7 % (2-12); NEUTROPHILS # (AUTO) 6.4 X10'3 (1.8-7.7); NEUTROPHILS % (AUTO) 66.8 % (42-75); PLATELET COUNT 181 X10'3 (140-440); RED BLOOD COUNT 3.56 X10'6 (4.70-6.10); RED CELL DISTRIBUTION WIDTH 13.3 % (11.5-14.5); WHITE BLOOD COUNT 9.6 X10'3 (4.5-11.0)
[2024-03-21 03:49] LABS: ANION GAP 8 (8-16); BLOOD UREA NITROGEN 9 MG/DL (7-18); BUN/CREATININE RATIO 10.2 (10.0-20.0); CALCIUM 8.8 MG/DL (8.5-10.1); CHLORIDE 106 MMOL/L (99-107); CREATININE 0.88 MG/DL (0.60-1.10); GLUCOSE 132 MG/DL (70-104); MAGNESIUM 2.2 MG/DL (1.5-2.4); POTASSIUM 4.9 MMOL/L (3.5-5.1); SODIUM 139 MMOL/L (135-145); TOTAL CARBON DIOXIDE 24.9 MMOL/L (24-32); eCRCL 68 ML/MIN; eGFR 84 ML/MIN
[2024-03-21] MEDS: amiodarone 150mg/dext, iso-os 100 ML IV ONE ×2 (08:27→08:37)
[2024-03-21] MEDS: ondansetron/PF 4mg/2ml inj IV PRN (09:56)
[2024-03-21] MEDS: albumin (Human) 5% 250ml 250 ML IV ONE ×2 (11:55→12:02)
[2024-03-21] MEDS: acetaminophen 325mg tablet PO PRN (21:18)
[2024-03-22] VITALS (13 sets, daily range): BP systolic 89–105; BP diastolic 49–62; PULSE 86–103; RESP 14–18; TEMP 97.6–98.3; O2SAT 95–98
[2024-03-22 06:48] LABS: BASOPHILS % (AUTO) 0.4 % (0-1); EOSINOPHILS # (AUTO) 0.8 X10'3 (0-0.9); EOSINOPHILS % (AUTO) 6.4 % (0-6); HEMATOCRIT 33.2 % (42.0-52.0); HEMOGLOBIN 11.6 g/dl (14.0-17.9); LYMPHOCYTES # (AUTO) 2.3 X10'3 (1.1-4.8); LYMPHOCYTES % (AUTO) 19.1 % (21-51); MEAN CORPUSCULAR HEMOGLOBIN 33.2 PG (27.0-31.0); MEAN CORPUSCULAR HGB CONC 34.8 g/dL (33.0-36.5); MEAN CORPUSCULAR VOLUME 95.3 FL (78-98); MEAN PLATELET VOLUME 7.8 FL (7.4-10.4); MONOCYTES # (AUTO) 1.3 X10'3 (0-0.9); MONOCYTES % (AUTO) 10.6 % (2-12); NEUTROPHILS # (AUTO) 7.7 X10'3 (1.8-7.7); NEUTROPHILS % (AUTO) 63.5 % (42-75); PLATELET COUNT 260 X10'3 (140-440); RED BLOOD COUNT 3.49 X10'6 (4.70-6.10); RED CELL DISTRIBUTION WIDTH 13.5 % (11.5-14.5); WHITE BLOOD COUNT 12.2 X10'3 (4.5-11.0)
[2024-03-22 06:56] LABS: ALBUMIN 3.2 G/DL (3.4-5.0); ANION GAP 9 (8-16); BLOOD UREA NITROGEN 9 MG/DL (7-18); BUN/CREATININE RATIO 8.3 (10.0-20.0); CALCIUM 8.3 MG/DL (8.5-10.1); CHLORIDE 107 MMOL/L (99-107); CREATININE 1.08 MG/DL (0.60-1.10); GLUCOSE 142 MG/DL (70-104); MAGNESIUM 2.5 MG/DL (1.5-2.4); POTASSIUM 4.2 MMOL/L (3.5-5.1); SODIUM 139 MMOL/L (135-145); TOTAL CARBON DIOXIDE 23.5 MMOL/L (24-32); eCRCL 55 ML/MIN; eGFR 66 ML/MIN
[2024-03-22] MEDS ORDERED: HYDR-3972 PO (09:29)
[2024-03-22] MEDS ORDERED: AMI200T PO (09:29)
[2024-03-22] MEDS ORDERED: LOP12.5T PO (09:29)
[2024-03-22] MEDS ORDERED: CLOP75TA34 PO (09:29)
[2024-03-22] MEDS ORDERED: APIX2.5T PO (09:29)
[2024-03-22] MEDS: pantoprazole 40mg Tablet.DR PO SCH (11:57)
[2024-03-23] VITALS (11 sets, daily range): BP systolic 83–104; BP diastolic 51–65; PULSE 93–137; RESP 12–22; TEMP 97–98.2; O2SAT 94–98
[2024-03-23 08:19] LABS: BASOPHILS % (AUTO) 0.3 % (0-1); EOSINOPHILS # (AUTO) 0.7 X10'3 (0-0.9); EOSINOPHILS % (AUTO) 5.3 % (0-6); HEMATOCRIT 32.3 % (42.0-52.0); HEMOGLOBIN 11.2 g/dl (14.0-17.9); LYMPHOCYTES # (AUTO) 2.1 X10'3 (1.1-4.8); LYMPHOCYTES % (AUTO) 16.9 % (21-51); MEAN CORPUSCULAR HEMOGLOBIN 32.7 PG (27.0-31.0); MEAN CORPUSCULAR HGB CONC 34.8 g/dL (33.0-36.5); MEAN PLATELET VOLUME 7.9 FL (7.4-10.4); MONOCYTES # (AUTO) 1.6 X10'3 (0-0.9); MONOCYTES % (AUTO) 13.1 % (2-12); NEUTROPHILS % (AUTO) 64.4 % (42-75); PLATELET COUNT 265 X10'3 (140-440); RED BLOOD COUNT 3.44 X10'6 (4.70-6.10); RED CELL DISTRIBUTION WIDTH 13.8 % (11.5-14.5); WHITE BLOOD COUNT 12.5 X10'3 (4.5-11.0)
[2024-03-23 08:32] LABS: ANION GAP 9 (8-16); BLOOD UREA NITROGEN 13 MG/DL (7-18); BUN/CREATININE RATIO 13.5 (10.0-20.0); CALCIUM 8.7 MG/DL (8.5-10.1); CHLORIDE 104 MMOL/L (99-107); CREATININE 0.96 MG/DL (0.60-1.10); GLUCOSE 131 MG/DL (70-104); MAGNESIUM 1.8 MG/DL (1.5-2.4); SODIUM 136 MMOL/L (135-145); TOTAL CARBON DIOXIDE 23.4 MMOL/L (24-32); eCRCL 62 ML/MIN; eGFR 76 ML/MIN
[2024-03-23] MEDS: amiodarone 200mg tablet PO ONE (11:50)
[2024-03-23] MEDS: midodrine tablet 2.5 MG TABLET PO SCH (17:36)
[2024-03-23] MEDS: temazepam 15mg capsule PO ONE (20:20)
[2024-03-23] MEDS: metoprolol tartrate 25mg tablet PO SCH (20:22)
[2024-03-24] VITALS (11 sets, daily range): BP systolic 86–120; BP diastolic 57–66; PULSE 80–91; RESP 16–22; TEMP 97.2–98.2; O2SAT 94–98
[2024-03-24] MEDS ORDERED: MIDO5TAB4 PO (02:35)
[2024-03-24] MEDS ORDERED: METO50TA7 PO (02:38)
[2024-03-24 07:24] LABS: ANION GAP 9 (8-16); BLOOD UREA NITROGEN 14 MG/DL (7-18); BUN/CREATININE RATIO 13.6 (10.0-20.0); CALCIUM 9.1 MG/DL (8.5-10.1); CHLORIDE 104 MMOL/L (99-107); CREATININE 1.03 MG/DL (0.60-1.10); GLUCOSE 132 MG/DL (70-104); POTASSIUM 4.3 MMOL/L (3.5-5.1); SODIUM 138 MMOL/L (135-145); TOTAL CARBON DIOXIDE 24.7 MMOL/L (24-32); eCRCL 58 ML/MIN; eGFR 70 ML/MIN
[2024-03-24] MEDS ORDERED: midodrine tablet 2.5 MG TABLET PO SCH (08:00)
[2024-03-24] MEDS: diphenhydrAMINE 25mg capsule PO ONE (23:09)
[2024-03-25] VITALS (7 sets, daily range): BP systolic 85–111; BP diastolic 46–71; PULSE 96–110; RESP 16–20; TEMP 97–97.8; O2SAT 96
[2024-03-25 07:00] LABS: ALBUMIN 2.9 G/DL (3.4-5.0); ANION GAP 11 (8-16); BLOOD UREA NITROGEN 17 MG/DL (7-18); BUN/CREATININE RATIO 15.6 (10.0-20.0); CALCIUM 8.7 MG/DL (8.5-10.1); CHLORIDE 103 MMOL/L (99-107); CREATININE 1.09 MG/DL (0.60-1.10); GLUCOSE 144 MG/DL (70-104); SODIUM 137 MMOL/L (135-145); eCRCL 55 ML/MIN; eGFR 65 ML/MIN
== END 2024-03-25 13:57 | disposition home health service (06) | DRG 233 ==
LOC: ER 17:40 → ED HOLD 22:59 → PCU 3S 03-13 01:30 → CICU 2S 03-16 11:36 → PCU 3S 03-21 17:24
PROVIDERS: ADMIT Internal Medicine Critical Care Medicine; ATTEND Internal Medicine
PROC: 4A023N7 Measurement of Cardiac Sampling and Pressure, Left Heart, Percutaneous Approach (ICD-10-PCS; principal; 2024-03-13)
PROC: B2111ZZ Fluoroscopy of Multiple Coronary Arteries using Low Osmolar Contrast (ICD-10-PCS; 2024-03-13)
PROC: B2151ZZ Fluoroscopy of Left Heart using Low Osmolar Contrast (ICD-10-PCS; 2024-03-13)
PROC: 02100Z9 Bypass Coronary Artery, One Artery from Left Internal Mammary, Open Approach (ICD-10-PCS; 2024-03-16)
PROC: 021109W Bypass Coronary Artery, Two Arteries from Aorta with Autologous Venous Tissue, Open Approach (ICD-10-PCS; 2024-03-16)
PROC: 06BP4ZZ Excision of Right Saphenous Vein, Percutaneous Endoscopic Approach (ICD-10-PCS; 2024-03-16)
PROC: 5A1221Z Performance of Cardiac Output, Continuous (ICD-10-PCS; 2024-03-16)
PROC: B24BZZ4 Ultrasonography of Heart with Aorta, Transesophageal (ICD-10-PCS; 2024-03-16)
PROC: 0T7D8ZZ Dilation of Urethra, Via Natural or Artificial Opening Endoscopic (ICD-10-PCS; 2024-03-16)
PROC: 30233N1 Transfusion of Nonautologous Red Blood Cells into Peripheral Vein, Percutaneous Approach (ICD-10-PCS; 2024-03-18)
DX: I21.4 Non-ST elevation (NSTEMI) myocardial infarction (principal); K29.61 Other gastritis with bleeding; N17.9 Acute kidney failure, unspecified; J96.10 Chronic respiratory failure, unspecified whether with hypoxia or hypercapnia; I47.20 Ventricular tachycardia, unspecified; S37.39XA Other injury of urethra, initial encounter; E03.9 Hypothyroidism, unspecified; E78.00 Pure hypercholesterolemia, unspecified; I48.0 Paroxysmal atrial fibrillation; G89.29 Other chronic pain; J44.9 Chronic obstructive pulmonary disease, unspecified; I10 Essential (primary) hypertension; N32.0 Bladder-neck obstruction; T50.2X5A Adverse effect of carbonic-anhydrase inhibitors, benzothiadiazides and other diuretics, initial encounter; K21.9 Gastro-esophageal reflux disease without esophagitis; Z88.8 Allergy status to other drugs, medicaments and biological substances; Y92.238 Other place in hospital as the place of occurrence of the external cause; Z90.79 Acquired absence of other genital organ(s); Z85.828 Personal history of other malignant neoplasm of skin; Z85.46 Personal history of malignant neoplasm of prostate; Z87.891 Personal history of nicotine dependence; Z86.711 Personal history of pulmonary embolism; Z83.511 Family history of glaucoma
CPT/HCPCS: 0232T; 93306; 93312; 93325; 93458; 96374; 99285; 36415; 36430; 36600; 71045; 71250; 80048; 80053; 80320; 81003; 82150; 82272; 82330; 82435; 82803; 82947; 82948; 83036; 83690; 83735; 83880; 84100; 84132; 84295; 84443; 84484; 85018; 85025; 85045; 85347; 85379; 85384; 85610; 85730; 86885; 86900; 86901; 86920; 87070; 87081; 92508; 92616; 93005; 93880; 93970; 94002; 94003; 94010; 94640; 94664; 94668; 94760; 97116; 97161; 97530; 99152; A4355; A4615; A4618; A5200; A6213; A6250; A6258; A6402; A6449; A7000; A7015; A7048; C1751; C1894; G0378; J0282; J0665; J0690; J1100; J1250; J1644; J1815; J2003; J2060; J2150; J2250; J2270; J2370; J2405; J2440; J2470; J2704; J2919; J3010; J3372; J3475; J3480; J3490; J7030; J7040; J7042; J7050; J7060; J7120; P9016; P9045; P9047; Q0163; Q9967

== ENCOUNTER 2024-04-17 13:53 | Outpatient (CLI) | payer MEDICARE, OTHER ==
[~2024-04-17 13:53] MED LIST: ALEN70TA14 PO; AMI200T PO; APIX2.5T PO; ASPI-1265 PO; ATOR20TA66 PO; BUDE0.5A11 IH; BUDE10.2 INH; CALC200T PO; CLOP75TA34 PO; HYDR-3972 PO; LEVO112T52 PO; METO50TA7 PO; MIDO5TAB4 PO; PANT-47 PO; TIOT4MIS2 PO; UBID100C16 PO
== END 2024-04-17 23:59 | disposition home or self-care (01) ==
LOC: RAD 13:53
PROVIDERS: ATTEND Student in an Organized Health Care Education/Training Program
DX: J98.11 Atelectasis (principal); J91.0 Malignant pleural effusion; Z98.890 Other specified postprocedural states
CPT/HCPCS: 71046

== ENCOUNTER 2024-05-31 12:14 | Outpatient (CLI) | payer MEDICARE, OTHER ==
[~2024-05-31 12:14] MED LIST changes: -METO50TA7 PO
== END 2024-05-31 23:59 | disposition home or self-care (01) ==
LOC: RAD 12:14
PROVIDERS: ATTEND Student in an Organized Health Care Education/Training Program
DX: J90 Pleural effusion, not elsewhere classified (principal)
CPT/HCPCS: 71046